=== PATIENT | male | born 1955 | race Caucasian/White ===

== ENCOUNTER 2016-12-19 06:56 | Observation (INO) | payer OTHER ==
[2016-12-19] MEDS ORDERED: diphenhydrAMINE 25 MG CAP PO ONE (07:00)
[2016-12-19] MEDS ORDERED: DIAZEPAM 5 MG TAB PO ONE (07:00)
[2016-12-19] MEDS ORDERED: BACITRACIN IRRIGATION/NS 50,000 UNITS/1,000 ML BTL IRR ONE (07:00)
[2016-12-19] MEDS ORDERED: ceFAZolin 2 GM/SWFI 2 GM/20 ML SYR IVP ONE (07:00)
[2016-12-19] MEDS ORDERED: NS 1,000 ML IV ONE (07:00)
[2016-12-19] MEDS ORDERED: ceFAZolin 2 GM in D5W 100 ML IV ONE (07:15)
--- NOTE | 2016-12-19 07:22 | CPEKG ---
Heart Rate: 95 RR Interval: 632 P-R Interval: 184 QRSD Interval: 152 QT Interval: 396 QTC Interval: 498 P [place]: 59 QRS [place]: 53 T Wave [place]: 14 EKG Severity - ABNORMAL ECG - EKG Impression: SINUS RHYTHM EKG Impression: RIGHT BUNDLE BRANCH BLOCK EKG Impression: No significant change from March 22, 2011 Electronically Signed By: Mina Blevins 19-Dec-2016 12:01:19
[2016-12-19 07:37] LABS: % IMMATURE GRANULYOCYTES 0.2 % (0.0-1.1); ABSOLUTE IMMATURE GRANULOCYTES 0.01 10^3/uL (0.00-0.10); ADD DIFF? NO; ADD MORPH? NO; ADD SCAN? NO; ATYPICAL LYMPHOCYTE FLAG 0 (0-99); FRAGMENT RBC FLAG 0 (0-99); HEMATOCRIT 42.2 % (40.0-51.0); HEMOGLOBIN 14.8 g/dL (13.7-17.5); LEFT SHIFT FLG 0 (0-99); LIPEMIA HEMOLYSIS FLAG 90 (0-99); MEAN CELL HEMOGLOBIN 31.9 pg (27.9-34.1); MEAN CELL HEMOGLOBIN CONCENTR. 35.1 g/dL (32.4-36.7); MEAN CELL VOLUME 90.9 fL (81.5-99.8); MEAN PLATELET VOLUME 9.2 fL (8.7-11.7); PLATELET CLUMPS FLAG 20 (0-99); PLATELET COUNT 175 10^3/uL (150-400); RED BLOOD CELL COUNT 4.64 10^6/uL (4.40-6.38); RED CELL DISTRIBUTION WIDTH 13.7 % (11.5-15.2)
[2016-12-19 07:48] LABS: INR 1.03 (0.83-1.16); PROTIME(PATIENT) 13.4 SEC (12.0-15.0)
[2016-12-19 07:52] LABS: ANION GAP 14 mEq/L (8-16); CALCIUM 9.3 mg/dL (8.5-10.4); CARBON DIOXIDE 24 mEq/l (22-31); CHLORIDE 106 mEq/L (97-110); CREATININE 1.1 mg/dL (0.7-1.3); GLOMERULAR FILTRATION RATE > 60; GLUCOSE 141 mg/dL (70-100); POTASSIUM 4.5 mEq/L (3.5-5.2); SODIUM 144 mEq/L (134-144)
--- NOTE | 2016-12-19 08:08 | PDHPUP ---
History & Physical Update H&P update statement: This history and physical update is based on an assessment of the patient which was completed after admission or registration (within 24 hours), but prior to the surgery/procedure. H&P update: H&P reviewed & patient examined, no change in patient's condition since H&P completed
--- NOTE | 2016-12-19 08:09 | PDPROPOC ---
Sedation Plan of Care Sedation Plan of Care: vital signs stable, mental status noted, patient educated of risks, benefits, alternatives, patient can tolerate sedation ASA Classification: ASA 2 Planned drugs: fentanyl, midazolam Mallampati Score: Class 1 Mallampati Reference Image: Patient passed 3-3-2 rule?: Yes
[2016-12-19] MEDS ORDERED: ONDANSETRON 4 MG/2 ML VIAL IVP PRN (11:25)
[2016-12-19] MEDS ORDERED: ONDANSETRON DISINTEGRATING 4 MG TAB PO PRN (11:25)
--- NOTE | 2016-12-19 11:32 | PDCTREPORT ---
Cardiothoracic Procedure Rpt Cardiothoracic Procedure Report: Procedure: Insertion of a dual chamber permanent pacemaker. Indications: Syncope with demonstrated heart block. Underlying right bundle branch block. After obtaining informed consent patient brought to the cardiac catheterization lab. The left subclavian fossa was sterilely prepped and draped. Central treated with 2% xylocaine. Subclavian venogram was performed revealing a widely patent vein. Using a 10 blade an incision was made below the clavicle. Using a combination of sharp and blunt dissection and Bovie catheter a permanent pacemaker pocket was created and hemostasis was achieved. Bacitracin soaked sponge was placed in the pocket. Using 18 gauge percutaneous needle x2 guidewires were advanced into the right heart. Using 6 Italian safety she has leads were advanced into the are the apex and right atrial appendage. Right atrial sensing and pacing were difficult despite multiple sites and multiple different guidewires. We ultimately settled for sensing over pacing. Sheaths were torn away and the lead was secured to the fascia using 0 Ethibond x2. Bacitracin soaked sponge was removed from the pocket. The generator was delivered to the field and attached to the leads after confirming serial numbers. Setscrews were tightened per industry standards. Device was then coiled into the pocket. The pocket was then closed using 2 0 Vicryl. Subcutaneous layer was closed using 3 0 Vicryl. Skin was closed using a strata Fix suture. Pressure dressing was applied the patient is taken to recovery for continued care. The device is a [employer]. Model number p.m. 2272. Serial 7. [id number]. Right atrial lead was a tendril model 2. 088 PC 46 serial number C an [id number]. Right ventricular lead is a tendril 2088 PC 52 serial number [id number]. Right atrial sensing was 2.4 mV. Impedance was 569 Ohms. Threshold was 1.6 volts with a pulse with a 1 millisecond. Right ventricular sensing was 5.9 mV with an impedance of 643 Ohms capture was at 0.5 volts with a pulse with a 0.5 milliseconds. For full details please see the attached computer report. Technical difficulties: Difficulty in finding ideal atrial location with both sensing and pacing optimization. Settled for optimal sensing. Complications: None Successful implantation of a dual-chamber pacemaker. Patient Problems: Problems Problem Status Onset Right bundle branch block Acute Heart block Acute Syncope Acute
--- NOTE | 2016-12-19 12:07 | CPEKG ---
Heart Rate: 84 RR Interval: 714 P-R Interval: 192 QRSD Interval: 146 QT Interval: 408 QTC Interval: 483 P [place]: 54 QRS [place]: 35 T Wave [place]: 9 EKG Severity - ABNORMAL ECG - EKG Impression: SINUS RHYTHM EKG Impression: RIGHT BUNDLE BRANCH BLOCK EKG Impression: No significant change since December 19, 2016, 7:18 Electronically Signed By: Mina Belvins 19-Dec-2016 19:40:38
[2016-12-19] MEDS ORDERED: NON-FORMULARY NEW DRUG (Omeprazole [Prilosec 20 Mg] 40 MG) PO SCH (21:00)
[2016-12-19] MEDS ORDERED: PANTOPRAZOLE SODIUM 40 MG TAB PO SCH (21:00)
[2016-12-20] MEDS: ACETAMINOPHEN 325 MG TAB PO PRN ×2 (00:28→08:24)
[2016-12-20 07:16] VITALS: PULSE 90
[2016-12-20] MEDS ORDERED: LISINOPRIL 20 MG TAB PO SCH (09:00)
[2016-12-20] MEDS ORDERED: HYDROCHLOROTHIAZIDE 25 MG TAB PO SCH (09:00)
[2016-12-20] MEDS ORDERED: LISINOPRIL 30 MG PO SCH (09:00)
[2016-12-20] MEDS ORDERED: TAMSULOSIN HCL 0.4 MG CAP PO SCH (09:00)
--- NOTE | 2016-12-20 10:00 | CPEKG ---
Heart Rate: 90 RR Interval: 667 P-R Interval: 176 QRSD Interval: 150 QT Interval: 400 QTC Interval: 490 P [place]: 69 QRS [place]: 56 T Wave [place]: 18 EKG Severity - ABNORMAL ECG - EKG Impression: SINUS RHYTHM EKG Impression: RIGHT BUNDLE BRANCH BLOCK EKG Impression: No significant change from December 19, 2016 Electronically Signed By: Mina Blevins 20-Dec-2016 11:47:22
[2016-12-20 11:33] VITALS: BP 121/81; RESP 14; TEMP 98.6; O2SAT 92
--- NOTE | 2016-12-20 13:22 | ASDISCHSUM ---
Discharge Information Plan Status:Home with No Needs Medically Cleared to Leave:12/20/2016 Discharge Date:12/20/2016 CM D/C Disposition:Home, Routine, Self-Care ADT D/C Disposition:Home, Routine, Self-Care Projected Discharge Date:12/20/2016 Transportation at D/C: Discharge Delay Reason: Follow-Up Date:12/20/2016 Discharge Slot: Final Diagnosis: Placement Information Patient Contact Information Contact Name:LAVELLE Relationship: Address: City: [facility] Phone: State/Zip Code: Email: Financial Information Financial Class:HMO and PPO Plans Primary Plan Desc:[facility] Primary Plan Number:[id number] Secondary Plan Desc: Secondary Plan Number: Assessment Information Intervention Information
--- NOTE | 2016-12-20 13:31 | ASMTCMCOM ---
CM Note CM Note Notes: Chart reviewed. S/P PPM for [facility]. No needs identified. CM available if needs arise. Date Signed: 12/20/2016 01:30 PM Electronically Signed By:Makeda Roldan RN
--- NOTE | 2016-12-20 13:32 | GDS ---
[f rep st] DISCHARGE SUMMARY PRIMARY OB/GYN PHYSICIAN: Hernando Zapata MD. DISCHARGE DIAGNOSIS: Syncope with heart block, status post dual-chamber, [employer]ric pacemaker. HOSPITAL COURSE: For detailed H and P, please see prior dictation. Briefly, the patient is a 61-yea r-old male with a history of hypertension, hyperlipidemia, obstructive sleep apnea, and right bundle branch block. He was complaining of rapid heart rhythm with associated near syncope and therefore, h ad an event monitor placed. He was found to have multiple arrhythmias, including sinus tachycardia, bradycardia, and complete AV heart block of 3.1 seconds. Ultimately, the decision was to proceed wit h pacemaker placement, which was done by Dr. Hernando Zapata on 12/19/2016. He had a [employer] DDDR pacer placed. The procedure was uncomplicated. The following morning, the patient denied any chest discomfort. His pacer interrogation revealed his device to be working properly. His EKG revealed n ormal sinus rhythm with right bundle branch block. He was monitored on telemetry, was intermittently paced. His chest x-ray the day of discharge is currently pending. PHYSICAL EXAMINATION: GENERAL: Patient appears in no acute distress. VITALS: Blood pressure 121/8 1, heart rate 90, oxygen saturation of 92% on room air, afebrile. LUNGS: Clear to auscultation. No wheezes, rhonchi, or crackles auscultated. CARDIAC: Regular rate and rhythm without any murmurs, r ubs, or gallops appreciated. CHEST WALL: His pacer site is clean and intact without any evidence of infection or hematoma. DISCHARGE MEDICATIONS: His medications are unchanged. He will continue Zestril 30 mg daily, Flomax 0.4 mg daily, Zantac 300 mg at bedtime, Prilosec 20 mg at bedtime, hydrochlorothiazide 25 mg daily, E xcedrin p.r.n. PLAN: The patient is currently stable and ready for discharge home pending the results of his chest x-ray. He has been given pacer precautions. He is scheduled to follow up in our office on November 28 at 2 p.m. for a wound check and pacer interrogation. /[id number]/MODL
== END 2016-12-20 13:28 | disposition home or self-care (01) ==
LOC: FCATH 06:56 → F2W 11:25
PROVIDERS: ADMIT Internal Medicine Interventional Cardiology; ATTEND Internal Medicine Interventional Cardiology
PROC: 02HK3JZ Insertion of Pacemaker Lead into Right Ventricle, Percutaneous Approach (ICD-10-PCS; principal; 2016-12-19)
PROC: 02H63JZ Insertion of Pacemaker Lead into Right Atrium, Percutaneous Approach (ICD-10-PCS; principal; 2016-12-19)
PROC: 0JH606Z Insertion of Pacemaker, Dual Chamber into Chest Subcutaneous Tissue and Fascia, Open Approach (ICD-10-PCS; principal; 2016-12-19)
DX: I44.2 Atrioventricular block, complete (principal); R55 Syncope and collapse; I45.10 Unspecified right bundle-branch block; R00.0 Tachycardia, unspecified; I10 Essential (primary) hypertension; E78.5 Hyperlipidemia, unspecified; G47.33 Obstructive sleep apnea (adult) (pediatric); K21.9 Gastro-esophageal reflux disease without esophagitis; M10.9 Gout, unspecified; Z87.891 Personal history of nicotine dependence
CPT/HCPCS: 33208; 71010; 71020; 93005; G0378; C1785; C1898; J0690

== ENCOUNTER → 2016-12-21 | Outpatient (CLI) | payer OTHER | LOC: FLAB 11:42 | PROVIDERS: ATTEND Internal Medicine Interventional Cardiology | DX: Z95.0 Presence of cardiac pacemaker (principal) ==